=== PATIENT | female | born 1990 | race Two or more races ===

== ENCOUNTER 2016-09-18 15:36 | Emergency (ER) | payer SELFPAY ==
[~2016-09-18] VITALS: Ht 157.5 cm; Wt 76.7 kg
[2016-09-18 16:12] LABS: Basophils # (auto) 0 uL; Basophils % (auto) 0.4 % (0.0-2.0); Eosinophils # (auto) 0.3 uL; Eosinophils % (auto) 2.7 % (0.0-7.0); Hemoglobin 14.3 g/dL (12.2-16.2); Lymphocytes # (auto) 2.5 uL; Lymphocytes % (auto) 19.7 % (10.0-50.0); Mean Corpuscular Hemoglobin 28.5 pg (28.0-32.0); Mean Corpuscular Hgb Conc. 31.9 g/dL (32.0-36.0); Mean Corpuscular Volume 89.3 fL (80.0-100.0); Mean Platelet Volume 7.3 fL (7.4-10.4); Monocytes # (auto) 0.6 uL; Monocytes % (auto) 4.6 % (0.0-12.0); Neutrophils # (auto) 9.4 uL; Neutrophils % (auto) 72.6 % (37.0-80.0); Platelet Count (auto) 545 10^3/uL (140-450); Red Cell Distribution Width 13.7 % (11.6-16.0); White Blood Cell 12.9 10^3/uL (4.4-10.8)
[2016-09-18 16:32] LABS: Albumin 3.9 g/dL (3.4-5.0); Magnesium 2.6 mg/dL (1.6-2.6); Potassium 4.2 mmol/L (3.5-5.1)
[2016-09-18 16:35] LABS: Bilirubin, Total 0.4 mg/dL (0.2-1.0); Total Protein 8.4 g/dL (6.4-8.2)
[2016-09-18] MEDS ORDERED: SODIUM CHLORIDE 0.9% 1,000 ML IV ONE (20:30)
[2016-09-18] MEDS ORDERED: LORazepam 0.5 MG TAB PO ONE (20:30)
[2016-09-18 21:33] VITALS: BP 120/74
[2016-09-18 21:49] LABS: Urine Bilirubin Negative (Negative); Urine Blood Negative /uL (Negative); Urine Color Yellow (Yellow); Urine Glucose Normal (Normal); Urine Ketone Negative (Negative); Urine Mucus FEW (None Seen); Urine Nitrite Negative (Negative); Urine RBC 4 /hpf (0 - 4); Urine Squamous Epithelial Cell MOD /hpf (<5); Urine Urobilinogen Normal (Negative); Urine pH 5.5 (5.0-8.0)
== END 2016-09-18 21:52 | disposition home or self-care (01) ==
LOC: ER 15:42
DX: F45.8 Other somatoform disorders (principal)
CPT/HCPCS: 36415; 80053; 81001; 83735; 84484; 84702; 85025; 93005; 96360

== ENCOUNTER 2023-08-30 06:54 | Emergency (ER) | payer MEDICAID, OTHER | END 2023-08-30 07:01 | disposition home or self-care (01) | LOC: ER 06:54 | DX: Z04.1 Encounter for examination and observation following transport accident (principal); F10.129 Alcohol abuse with intoxication, unspecified; V89.2XXA Person injured in unspecified motor-vehicle accident, traffic, initial encounter; Y93.89 Activity, other specified; Y92.410 Unspecified street and highway as the place of occurrence of the external cause; Y99.8 Other external cause status; Y90.9 Presence of alcohol in blood, level not specified ==